=== PATIENT | female | born 1985 | race Caucasian/White ===

== ENCOUNTER 2019-01-16 20:28 | Emergency (ER) | payer OTHER ==
[~2019-01-16] VITALS: Ht 160 cm; Wt 71.7 kg
--- NOTE | 2019-01-16 20:32 | NUR ---
Sheyla lopez in ED - 01/16/19 at 2114 by SDEDCJM EKG performed at by TEA Bolaños. Physician given copy of EKG for review.
[2019-01-16 20:38] VITALS: BP_SYST 157
--- NOTE | 2019-01-16 20:41 | NUR ---
Placed in room 01. Placed on dry cell sealer, blood pressure machine and pulse oximeter. To gown for exam. Side rails up. Report given to Izabel METCALF.
--- NOTE | 2019-01-16 20:42 | NUR ---
EKG performed at by TEA Bolaños. Physician given copy of EKG for review.
[2019-01-16] MEDS ORDERED: ASPIRIN 81 MG TAB.CHEW PO ONE (20:45)
[2019-01-16] MEDS ORDERED: ONDANSETRON HCL 4 MG/2 ML VIAL IVP ONE (20:45)
[2019-01-16] MEDS ORDERED: ACETAMINOPHEN 325 MG TABLET PO ONE (20:45)
--- NOTE | 2019-01-16 20:45 | NUR ---
ER at bedside examining patient.
--- NOTE | 2019-01-16 20:47 | NUR ---
Patient brought in complaining of gradual onset, mid sternal chest pain with shortness of breath and pain to her left lower calf intermittently x 1 month. No other complaints/injuries per patient or as noted. Will continue to monitor.
--- NOTE | 2019-01-16 21:30 | NUR ---
Patient refused Zofran at this time. Denies any nausea. notified
--- NOTE | 2019-01-16 21:31 | NUR ---
# 22 gauge angiocath placed to Left Hand. Use of asceptic technique. Opsite placed over site. Blood return noted. Blood for lab drawn from site. Flushed with 10 cc of normal saline. No evidence of infiltration noted. Patient tolerated well.
--- NOTE | 2019-01-16 21:42 | NUR ---
off unit to ultrasound
--- NOTE | 2019-01-16 21:57 | NUR ---
Patient returned from Ultrasound.
[2019-01-16 22:07] LABS: BASOPHILS # (AUTO) 0.1 K/uL (0.0-0.2); BASOPHILS % (AUTO) 0.8 % (0.0-2.0); EOSINOPHILS # (AUTO) 0.1 K/uL (0.0-0.4); EOSINOPHILS % (AUTO) 0.8 % (0.0-4.0); HEMATOCRIT 37.7 % (36-48); HEMOGLOBIN 13.1 g/dL (12.0-16.0); LYMPHOCYTES # (AUTO) 2.7 K/uL (1.0-5.5); LYMPHOCYTES % (AUTO) 29.8 % (20.5-51.5); MEAN CORPUSCULAR HEMOGLOBIN 33 pg (27-31); MEAN CORPUSCULAR HGB CONC 35 % (32-36); MEAN CORPUSCULAR VOLUME 94 fL (79.0-98.0); MONOCYTES # (AUTO) 0.5 K/uL (0.0-1.0); MONOCYTES % (AUTO) 5.5 % (1.7-9.3); NEUTROPHILS # (AUTO) 5.7 K/uL (1.8-7.7); NEUTROPHILS % (AUTO) 63.1 % (40.0-70.0); PLATELET COUNT (AUTO) 210 K/uL (130-430); RED BLOOD CELL COUNT(AUTO) 4.02 MIL/uL (4.2-6.2); RED CELL DISTRIBUTION WIDTH 12.3 % (9.0-15.0); WHITE BLOOD COUNT (AUTO) 9.1 K/uL (4.8-10.8)
[2019-01-16 22:34] LABS: CALCIUM 8.8 mg/dL (8.4-11.0); CREATININE 0.79 mg/dL (0.55-1.30); POTASSIUM 3.6 mmol/L (3.5-5.1)
[2019-01-16 22:35] LABS: PROTHROMBIN TIME 9.7 SECS (9.5-12.5)
[2019-01-16 22:40] LABS: ALBUMIN 3.6 g/dL (3.4-4.8); TOTAL BILIRUBIN 0.2 mg/dL (0.0-1.0)
--- NOTE | 2019-01-16 23:30 | NUR ---
Patient pending from 2nd troponin and ekg results.
--- NOTE | 2019-01-17 00:55 | NUR ---
Note kavehone in EDM - 01/17/19 at 0113 by SDEDCJM Patient given written and verbal discharge instructions and verbalizes understanding. ER discussed with patient the results and treatment provided. Patient in stable condition. ID arm band removed. IV catheter removed intact and dressing applied, no active bleeding. No Rx given. Patient educated on pain management and to follow up with PMD in 2-3 days for further evaluation. Pain Scale 0/10 Opportunity for questions provided and answered. Medication side effect fact sheet provided.
[2019-01-17 00:59] VITALS: BP_SYST 146
--- NOTE | 2019-01-17 00:59 | NUR ---
Patient given written and verbal discharge instructions and verbalizes understanding. ER MD discussed with patient the results and treatment provided. Patient in stable condition. ID arm band removed. IV catheter removed intact and dressing applied, no active bleeding. No Rx given. Patient educated on pain management and to follow up with PMD in 2-3 days for further evaluation. Pain Scale 0/10 Opportunity for questions provided and answered. Medication side effect fact sheet provided.
== END 2019-01-17 00:59 | disposition home or self-care (01) ==
LOC: SED 20:28
DX: R07.89 Other chest pain (principal); R06.02 Shortness of breath; M79.662 Pain in left lower leg; R05 Cough; R03.0 Elevated blood-pressure reading, without diagnosis of hypertension; Z90.89 Acquired absence of other organs; Z88.6 Allergy status to analgesic agent
CPT/HCPCS: 36415; 71045; 80053; 81025; 82550; 83690; 83880; 84484; 85025; 85379; 85610; 85730; 93971; 99284; J2405